=== PATIENT | female | born 1945 | race Caucasian/White ===

== ENCOUNTER 2017-04-27 16:12 | Emergency (ER) | payer MEDICARE ==
[~2017-04-27] VITALS: Ht 160 cm; Wt 72.6 kg
[2017-04-27 16:41] VITALS: BP 140/76
== END 2017-04-27 20:08 | disposition left against medical advice (07) ==
LOC: ER 16:12
DX: S41.152A Open bite of left upper arm, initial encounter (principal); Z53.21 Procedure and treatment not carried out due to patient leaving prior to being seen by health care provider; W54.0XXA Bitten by dog, initial encounter; Y93.89 Activity, other specified; Y92.89 Other specified places as the place of occurrence of the external cause; Y99.8 Other external cause status

== ENCOUNTER 2019-09-24 18:45 | Inpatient (IN) | payer MEDICARE, OTHER ==
[~2019-09-24] VITALS: Ht 160 cm; Wt 69.6 kg
[2019-09-24 19:57] LABS: Mean Corpuscular Volume 64.4 fL (80.0-100.0); White Blood Cell 6.2 10^3/uL (4.4-10.8)
[2019-09-24 19:58] LABS: Hematocrit 23.2 % (36.0-46.0); Mean Corpuscular Hemoglobin 19.1 pg (28.0-32.0); Mean Corpuscular Hgb Conc. 29.7 g/dL (32.0-36.0); Platelet Count (auto) 325 10^3/uL (140-450); Red Cell Distribution Width 17.8 % (11.8-14.3)
[2019-09-24 20:08] LABS: Alanine Aminotransferase 12 U/L (13-56); Albumin 3.5 g/dL (3.4-5.0); Anion Gap 10 (5-15); Blood Urea Nitrogen 24 mg/dL (7-18); Calcium 9.2 mg/dL (8.5-10.1); Carbon Dioxide 18 mmol/L (21-32); Chloride 109 mmol/L (98-107); Glucose 195 mg/dL (74-106); Potassium 4.4 mmol/L (3.5-5.1); Sodium 137 mmol/L (136-145)
[2019-09-24 20:13] LABS: Alkaline Phosphatase 79 U/L (45-117); Aspartate Aminotransferase 13 U/L (15-37); BUN/Creatinine Ratio 12.9; Bilirubin, Total 0.4 mg/dL (0.2-1.0); GFR African American 34 mL/min; GFR Non-African American 28 mL/min; Total Protein 7.4 g/dL (6.4-8.2)
[2019-09-24 20:18] LABS: Hemoglobin 6.9 g/dL (12.2-16.2)
[2019-09-24 20:21] LABS: Band Neutrophils % (manual) 0; Basophils % (manual) 0 (0.0-2.0); Blast Cells 0; Metamyelocytes % 0; Myelocytes % 0; Promyelocytes % 0; Reactive Lymphocytes 0
[2019-09-24] MEDS ORDERED: ACETAMINOPHEN 325 MG TAB PO PRN (20:30)
[2019-09-24] MEDS ORDERED: NITROGLYCERIN 0.4 MG SL TAB SL PRN (20:30)
[2019-09-24] MEDS ORDERED: MORPHINE SULF INJ 2 MG/ML SYRINGE 1ML IV PRN ×2 (20:30)
[2019-09-24] MEDS ORDERED: LORazepam 0.5 MG TAB PO PRN (20:30)
[2019-09-24] MEDS ORDERED: IPRATROPIUM BROM 0.5 MG/2.5ML INH SOL NEB PRN (20:30)
[2019-09-24] MEDS ORDERED: ONDANSETRON HCL 4 MG/2 ML VIAL IV PRN (20:30)
[2019-09-24] MEDS ORDERED: DEXTROSE (50%) 50ML SYRG IV PRN (20:30)
[2019-09-24] MEDS ORDERED: DOCUSATE SOD 100 MG CAP PO PRN (20:30)
[2019-09-24] MEDS ORDERED: HYDROcodone-ACET 5/325MG TAB PO PRN (20:30)
[2019-09-24] MEDS ORDERED: SODIUM CHLORIDE 0.9% 1,000 ML IV SCH (20:30)
[2019-09-24] MEDS ORDERED: ALBUTEROL SULF 2.5 MG/0.5ML(0.5%) NEB SOLN NEB PRN (20:30)
[2019-09-24 20:54] VITALS: BP 179/42
--- NOTE | 2019-09-24 20:56 | NUR ---
Respiratory note: PT ASSESSED FOR PRN MED NEB TX. HR 74, RR 18, SPO2 99% ON RA. NO S/S OF ANY RESPIRATORY DISTRESS NOTED. ADVISED PT TO CALL IF TX IS NEEDED.
--- NOTE | 2019-09-24 22:15 | NUR ---
Telemetry admit from ER JUDIE SEXTON admitted to Telemetry unit after SBAR received. Patient oriented to Kortney toscano RN, unit, room, bed, and unit policies regarding patient care and visiting hours. Patient now on continuous telemetry monitoring, tele box # [id number] and telemetry reading on arrival to unit is SR 64. Patient placed on bedside oxygen, weighed by bed scale and encouraged to call if they need something. All questions and concerns addressed, patient verbalized understanding. Note: Came per wheelchair awake alert oriented x 4, placed in the bed comfortably ,vital signs checked .
[2019-09-24 22:31] LABS: Eosinophils % (manual) 2 (0-7); Lymphocytes % (manual) 24 (10.0-50.0); Monocytes % (manual) 2 (0-12)
[2019-09-24] MEDS: CARVEDILOL 3.125 MG TAB PO SCH (22:33)
[2019-09-24] MEDS ORDERED: SIMV-8 PO (23:09)
[2019-09-24] MEDS ORDERED: MEDR2.5T3 PO (23:09)
[2019-09-24] MEDS ORDERED: AMLO5TAB15 PO (23:09)
[2019-09-24] MEDS ORDERED: FEXO-42 PO (23:09)
[2019-09-24] MEDS ORDERED: CLOP75TA41 PO (23:09)
[2019-09-24] MEDS ORDERED: PIO30T PO (23:09)
[2019-09-24] MEDS ORDERED: GLIM4TAB42 PO (23:09)
[2019-09-24] MEDS: InsuLIN REG 1unit/0.01ml Soln (100units/ml) SC SCH (23:49)
[2019-09-24] MEDS: ACCU-CHEK COMFORT CURVE STRIP VI SCH (23:50)
[2019-09-25] VITALS (12 sets, daily range): BP systolic 141–189; BP diastolic 53–78
--- NOTE | 2019-09-25 00:18 | NUR ---
Started transfusion of packed red cell one unit.
--- NOTE | 2019-09-25 02:45 | NUR ---
Blood transfusion done without reaction noted.
[2019-09-25] MEDS: ACCU-CHEK COMFORT CURVE STRIP VI SCH ×6 (04:38→23:10)
[2019-09-25] MEDS: InsuLIN REG 1unit/0.01ml Soln (100units/ml) SC SCH ×6 (04:39→23:10)
[2019-09-25 06:27] LABS: Basophils # (auto) 0.1 10 ^3/uL (0-0.2); Eosinophils # (auto) 0.2 10 ^3/uL (0-0.8); Eosinophils % (auto) 3.8 % (0.0-7.0); Lymphocytes # (auto) 1.5 10 ^3/uL (0.4-5.4); Mean Corpuscular Volume 67.2 fL (80.0-100.0); Monocytes # (auto) 0.5 10 ^3/uL (0-1.3)
[2019-09-25 06:30] LABS: Hematocrit 24.5 % (36.0-46.0); Hemoglobin 7.6 g/dL (12.2-16.2); Lymphocytes % (auto) 23.4 % (10.0-50.0); Mean Corpuscular Hemoglobin 20.8 pg (28.0-32.0); Monocytes % (auto) 8.2 % (0.0-12.0); Neutrophils % (auto) 63.6 % (37.0-80.0); Platelet Count (auto) 272 10^3/uL (140-450); Red Blood Cells 3.64 10^6/uL (4.0-5.20); White Blood Cell 6.4 10^3/uL (4.4-10.8)
[2019-09-25 06:40] LABS: Red Cell Distribution Width 21.2 % (11.8-14.3)
[2019-09-25 06:45] LABS: Potassium 4.2 mmol/L (3.5-5.1)
[2019-09-25 06:53] LABS: BUN/Creatinine Ratio 16.3; Calcium 8.7 mg/dL (8.5-10.1)
--- NOTE | 2019-09-25 07:19 | NUR ---
Report given to Radha Callahan, patient is resting no distress.
--- NOTE | 2019-09-25 07:48 | NUR ---
OPENING SHIFT NOTE Assumed care of patient, awake and alert. No S/S of distress/SOB or pain. Bed in low and locked position. Call light within reach. Instructed on POC and to call for assist PRN, will continue to monitor for changes Q1hr and PRN.
--- NOTE | 2019-09-25 09:41 | NUR ---
RT NOTE: PRN BREATHING TX. NOT INDICATED AT THIS TIME. PT. DENIES ANY SOB. NO S/S OF RESPIRATORY DISTRESS NOTED. PT. HR 60, RR 18, POX 100% R/A. BREATH SOUNDS ARE DIMINISHED WITH FAINT CRACKLES IN THE BASES. PT. ADVISED TO NOTIFY RN IF BREATHING TX. IS NEEDED.
[2019-09-25] MEDS: CARVEDILOL 3.125 MG TAB PO SCH ×2 (10:50→21:41)
[2019-09-25] MEDS: FUROSEMIDE 40 MG/4 ML VIAL IV SCH (10:51)
[2019-09-25 12:05] LABS: % Iron Saturation 9.7 % (15-50)
[2019-09-25] MEDS ORDERED: hydrALAZINE HCL 20 MG/ML VL IV PRN (14:15)
[2019-09-25] MEDS: ATORVASTATIN 20 MG TAB PO SCH (17:15)
[2019-09-25] MEDS: DOCUSATE SOD 100 MG CAP PO SCH ×2 (17:16→21:41)
[2019-09-25] MEDS: FERROUS SULFATE 325 MG TAB PO SCH (17:16)
--- NOTE | 2019-09-25 19:08 | NUR ---
RT NOTE: PT ASSESSED FOR PRN MED NEB TX, PT SLEEPING WITH NO DISTRESS. PT ON ROOM AIR SPO2 97% HR 67, RR 16. NO TX INDICATED AT THIS TIME.
--- NOTE | 2019-09-25 19:30 | NUR ---
Opening Shift Note Assumed care of patient, awake and alert. No S/S of distress/SOB or pain. Fall and safety precautions in place. Call light within reach and able to use. Instructed on POC and to call for assist PRN, patient verbalized understanding and in agreement. Will continue to monitor for changes Q1hr and PRN.
--- NOTE | 2019-09-25 20:00 | NUR ---
STOOL SAMPLE SENT TO LAB
--- NOTE | 2019-09-25 20:16 | NUR ---
PULLS OUT IV UPON ENTERING ROOM TO REINFORCE IV TAPE, PATIENT IS NOTED TO HAVE REMOVED IV RFOM SKIN, WITH IV CATHETER INTACT, NO BLEEDING FOUND AT SITE. PRESSURE GAUZE APPLIED. [id number] PATIENT ON IMPORTANCE OF IV ACCESS AND NOT TO REMOVE AGAIN. PATIENT IN AGREEMENT. WILL BEGIN NEW IV ACCESS.
[2019-09-25 20:19] LABS: Basophils # (auto) 0.1 10 ^3/uL (0-0.2); Eosinophils # (auto) 0.3 10 ^3/uL (0-0.8); Monocytes # (auto) 0.4 10 ^3/uL (0-1.3); Neutrophils % (auto) 75.4 % (37.0-80.0)
[2019-09-25 20:20] LABS: Basophils % (auto) 0.8 % (0.0-2.0); Eosinophils % (auto) 3.9 % (0.0-7.0); Hematocrit 26.2 % (36.0-46.0); Hemoglobin 8.1 g/dL (12.2-16.2); Lymphocytes % (auto) 13.8 % (10.0-50.0); Mean Corpuscular Hemoglobin 20.6 pg (28.0-32.0); Mean Corpuscular Hgb Conc. 30.9 g/dL (32.0-36.0); Mean Corpuscular Volume 66.8 fL (80.0-100.0); Monocytes % (auto) 6.1 % (0.0-12.0); Neutrophils # (auto) 5.3 10 ^3/uL (1.6-8.6); Platelet Count (auto) 272 10^3/uL (140-450); Red Blood Cells 3.93 10^6/uL (4.0-5.20)
[2019-09-25 20:23] LABS: Red Cell Distribution Width 21.7 % (11.8-14.3)
--- NOTE | 2019-09-25 21:00 | NUR ---
IV insertion IV access obtained, via clean sterile technique by inserting 22 gauge catheter at left AC after 2 attempts. IV secured properly. No trauma to site. Patient tolerated well.
[2019-09-26] MEDS: ACCU-CHEK COMFORT CURVE STRIP VI SCH ×4 (03:05→16:00)
[2019-09-26] MEDS: InsuLIN REG 1unit/0.01ml Soln (100units/ml) SC SCH ×4 (03:08→16:00)
--- NOTE | 2019-09-26 03:42 | NUR ---
PATIENT PULLS IV OUT PRESSURE APPLIED TO SITE. PATIENT STATED SHE DID NOT KNOW WHAT HAPPENED AND STATED SHE PULLED IT OUT. MADE EXTERNAL GRINDER TENDER AWARE OF 2 INCIDENTS. WILL START NEW IV ACCESS. WILL CONTINUE TO MONITOR.
[2019-09-26 05:00] VITALS: BP 143/47
--- NOTE | 2019-09-26 05:00 | NUR ---
pagegiulia REYES Patient found off tele. Patient states she took it off and appears confused. Patient unable to give name. Called [facility] to update on patient status and overnight events of removing IV/tele, episode of emesis, and confusion. Spoke to Paulette who is covering. New order received for head CT , read back and verified. Will continue to monitor.
[2019-09-26 05:37] LABS: Basophils # (auto) 0.1 10 ^3/uL (0-0.2); Eosinophils # (auto) 0.2 10 ^3/uL (0-0.8); Eosinophils % (auto) 2.9 % (0.0-7.0); Monocytes # (auto) 0.4 10 ^3/uL (0-1.3)
[2019-09-26 05:40] LABS: Hematocrit 23.9 % (36.0-46.0); Hemoglobin 8.1 g/dL (12.2-16.2); Lymphocytes # (auto) 1.1 10 ^3/uL (0.4-5.4); Lymphocytes % (auto) 14.3 % (10.0-50.0); Mean Corpuscular Hemoglobin 23.6 pg (28.0-32.0); Mean Corpuscular Hgb Conc. 34.2 g/dL (32.0-36.0); Mean Corpuscular Volume 69.1 fL (80.0-100.0); Monocytes % (auto) 5.4 % (0.0-12.0); Neutrophils # (auto) 6.1 10 ^3/uL (1.6-8.6); Neutrophils % (auto) 76.4 % (37.0-80.0); Platelet Count (auto) 261 10^3/uL (140-450); Red Blood Cells 3.45 10^6/uL (4.0-5.20); White Blood Cell 7.9 10^3/uL (4.4-10.8)
[2019-09-26 05:46] LABS: Red Cell Distribution Width 21.5 % (11.8-14.3)
[2019-09-26 05:50] LABS: BUN/Creatinine Ratio 18.7; Calcium 9.1 mg/dL (8.5-10.1); Magnesium 2.4 mg/dL (1.6-2.6); Phosphorus 4.2 mg/dL (2.5-4.90); Potassium 4.2 mmol/L (3.5-5.1); Uric Acid 6.5 mg/dL (2.6-6.0)
--- NOTE | 2019-09-26 06:00 | NUR ---
IV insertion IV access obtained, via clean sterile technique by inserting 22 gauge catheter at RIGHT FA after 2 attempts. IV secured properly. No trauma to site. Patient tolerated well.
--- NOTE | 2019-09-26 07:54 | NUR ---
OPENING SHIFT NOTE Resumed care of patient. PT is awake and alert. No S/S of distress/SOB or pain. PT awaiting ordered CT. Bed in low and locked position. Call light within reach. Instructed on POC and to call for assist PRN, will continue to monitor for changes Q1hr and PRN.
--- NOTE | 2019-09-26 08:02 | NUR ---
Respiratory note: PT ASSESSED FOR MEDNEB. ON ROOM AIR 98% NO DISTRESS. INFORMED PT TO HAVE RT PAGED IF SOB.
[2019-09-26 09:00] VITALS: BP 137/42
[2019-09-26] MEDS: FUROSEMIDE 40 MG/4 ML VIAL IV SCH (09:53)
[2019-09-26] MEDS: DOCUSATE SOD 100 MG CAP PO SCH (09:53)
[2019-09-26] MEDS ORDERED: FER325T PO (09:53)
[2019-09-26] MEDS: FERROUS SULFATE 325 MG TAB PO SCH ×2 (09:53→18:00)
[2019-09-26] MEDS ORDERED: DOCU100C8 PO (09:53)
[2019-09-26] MEDS: CARVEDILOL 3.125 MG TAB PO SCH (09:54)
[2019-09-26 13:00] VITALS: BP 137/47
--- NOTE | 2019-09-26 13:44 | NUR ---
SPOKE WITH DR DONOVAN. STATED PT WAS CLEAR FOR DISCHARGE FROM [facility].
--- NOTE | 2019-09-26 14:42 | NUR ---
SPOKE WITH DR ROUSE. NOTIFIED HIM OF [facility] CLEARANCE. MD REVIEWED CT EXAM AND INSTRUCTED TO PROCEED WITH DISCHARGE. WILL CARRY OUT.
--- NOTE | 2019-09-26 16:50 | NUR ---
CALLED [facility]. INSTRUCTED TO FAX DOCUMENTS TO [facility] AND PT CAN BE DISCHARGED.
[2019-09-26 17:29] VITALS: BP 126/52
[2019-09-26] MEDS: ATORVASTATIN 20 MG TAB PO SCH (18:00)
[2019-09-27 10:30] LABS: Folate (Folic Acid) 12.89 ng/mL (5.38-24)
== END 2019-09-26 17:45 | disposition home health service (06) | DRG 811 ==
LOC: ER 18:45 → TELE 18:46 → TELE-WESTW 22:42
PROVIDERS: ADMIT Hospitalist; ATTEND Hospitalist
PROC: 30233N1 Transfusion of Nonautologous Red Blood Cells into Peripheral Vein, Percutaneous Approach (ICD-10-PCS; principal; 2019-09-25)
DX: D50.9 Iron deficiency anemia, unspecified (principal); N17.0 Acute kidney failure with tubular necrosis; I13.0 Hypertensive heart and chronic kidney disease with heart failure and stage 1 through stage 4 chronic kidney disease, or unspecified chronic kidney disease; N18.3 Chronic kidney disease, stage 3 (moderate); E11.22 Type 2 diabetes mellitus with diabetic chronic kidney disease; E78.5 Hyperlipidemia, unspecified; E63.9 Nutritional deficiency, unspecified; I50.9 Heart failure, unspecified; Z90.710 Acquired absence of both cervix and uterus; Z91.041 Radiographic dye allergy status; Z88.0 Allergy status to penicillin
CPT/HCPCS: 36415; 70450; 71046; 76775; 80048; 80053; 80061; 82270; 82607; 82746; 82962; 83036; 83540; 83550; 83735; 83880; 84100; 84484; 84550; 85007; 85025; 85027; 86850; 86900; 86901; 86920; 93005; G0378; J1815; J2405